=== PATIENT | male | born 1940 | race Caucasian/White ===

== ENCOUNTER 2017-08-18 09:30 | Observation (INO) | payer OTHER ==
--- NOTE | 2017-08-17 15:39 | GHP ---
[f rep st] PREOP HISTORY AND PHYSICAL DATE OF ADMISSION: 08/18/2017 PROBLEM: Severe right knee OA. HISTORY OF PRESENT ILLNESS: The patient is a 77-year-old male who will be undergoing a right total knee arthroplasty with Dr. Rangel at the [facility] on August 18, 2017. The patient has had progressive debilitating pain of the right knee over the past several years. His activities are limited. His knee is painful when going up and down stairs. He can walk about a mile with pain. He also notes occasional swelling. No previous surgery of the right knee. He has had 1 previous cortisone injection in the past as well as physical therapy exercises, which have stopped working. Because of his progressive pain, advanced arthritis, and recalcitrant response to conservative therapies, the patient has elected to proceed with a right total knee arthroplasty. PAST MEDICAL HISTORY: Pertinent for arthritis, coronary artery disease, aortic valve disease with aortic valve replacement in 2014, as well as BPH. No history of MRSA, hepatitis, DVT, PE, or metal allergies. CURRENT MEDICATIONS: Atorvastatin 80 mg, finasteride 5 mg, lisinopril 20 mg, ranitidine 150 mg, tamsulosin 0.4 mg, VESIcare 5 mg, baby aspirin 81 mg. MEDICATION ALLERGIES: No known drug allergies. SOCIAL HISTORY: The patient is . He lives part-time in [place], [place] and part-time in [place], [place]. He is a former smoker. He is retired. His activities include walking. FAMILY HISTORY: Pertinent for coronary artery disease and arthritis. PHYSICAL EXAMINATION: VITALS: Height 5 feet 10 inches, weight 170 pounds, BMI 24.4. GENERAL: He is a healthy-appearing 77-year-old male. HEENT: Head is normocephalic, atraumatic. Eyes are PERRLA. Conjunctivae and sclerae are clear. Mouth he has good oral hygiene without any loose teeth. LUNGS: Clear. HEART: Regular rate and rhythm. Soft systolic murmur heard best at the right upper sternal border without gallops or rubs. ABDOMEN: Deferred. EXTREMITIES : Pertinent findings are limited to the patient's right knee. He has full extension and about 110 degrees of flexion. Mild valgus alignment. Mild effusion. Large superficial varicosities in both legs. Mild pseudolaxity noted of his LCL. The knee is otherwise stable to exam. He has mild to moderate crepitus with active knee extension. DIAGNOSTIC IMAGING: Recent x-rays taken of the patient's knee shows severe bone -on-bone arthritis of the lateral compartment. He also has mild to moderate medial compartment space narrowing and [id number] findings of the patellofemoral compartment. IMPRESSION: On admission 1. Severe right knee osteoarthritis. 2. Coronary artery disease with bypass surgery approximately 25 years ago. 3. Aortic valve disease with aortic valve replacement (bovine in 2014). 4. Treated benign prostatic hypertrophy. 5. Treated hypercholesterolemia. PLAN: The plan will be for the patient to undergo a right total knee arthroplasty with Dr. Rangel at the [facility]. The surgery has been described to the patient including the risks, benefits, and expectations. He understands the importance of postoperative physical therapy. He understands the risk of blood clot, PE, DE, and . All his questions are answered here in the office today. Dr. Rangel was also able to see the patient and answer his questions as well. Copy requested to: Marquez Mcdonald MD [facility] [place], [place] /[id number]/MODL MTDD
[~2017-08-18 09:30] MED LIST: POVIDONE-IODINE 20 ML in SODIUM CL IRRIG SOLUTION 500 ML IRR ONE; ROPIVACAINE 0.2% 80 MG, EPINEPHrine 0.2 MG, KETOROLAC TROMETHAMINE 30 MG in SYRINGE 0 ML IU ONE; TRANEXAMIC ACID 820 MG in NS 100 ML IV ONE
[2017-08-18] MEDS ORDERED: GABAPENTIN 300 MG CAP PO ONE (10:03)
[2017-08-18] MEDS ORDERED: ACETAMINOPHEN 325 MG TAB PO ONE (10:03)
[2017-08-18] MEDS ORDERED: ceFAZolin 2 GM/SWFI 2 GM/20 ML SYR IVP ONE (10:03)
[2017-08-18] MEDS ORDERED: DEXAMETHASONE 4 MG/ML VIAL IVP ONE (10:03)
[2017-08-18] MEDS ORDERED: FAMOTIDINE 20 MG TAB PO ONE (10:03)
[2017-08-18] MEDS ORDERED: LR 1,000 ML IV ONE (10:04)
[2017-08-18] MEDS ORDERED: LIDOCAINE 1% 2 ML INJ ID PRN (10:04)
[2017-08-18] MEDS ORDERED: VANCOMYCIN 1 GM VIAL ONE (10:05)
[2017-08-18] MEDS ORDERED: ceFAZolin 1 GM/5 ML SYR ONE (10:06)
--- NOTE | 2017-08-18 11:30 | PDANEPAE ---
ANE History of Present Illness knee osteoarthritis ANE Past Medical History - Cardiovascular History Hx Hypertension: Yes Hx Arrhythmias: No Hx Chest Pain: No Hx Coronary Artery / Peripheral Vascular Disease: Yes Hx CHF / Valvular Disease: Yes Hx Palpitations: No Cardiovascular History Comment: htn. hyperlipidemia. cad. hx of cabg x3v. hx of aortic valve replacement 2016. seen at [facility] - Pulmonary History Hx COPD: No Hx Asthma/Reactive Airway Disease: No Hx Recent Upper Respiratory Infection: No Hx Oxygen in Use at Home: No Hx Sleep Apnea: Yes Sleep Apnea Screening Result - Last Documented: Positive Pulmonary History Comment: zaid triggers - Neurologic History Hx Cerebrovascular Accident: No Hx Seizures: No Hx Dementia: No - Endocrine History Hx Diabetes: No Hypothyroid: No Hyperthyroid: No Obesity: no - Renal History Hx Renal Disorders: Yes Renal History Comment: bph - Liver History Hx Hepatic Disorders: No - Neurological & Psychiatric Hx Hx Neurological and Psychiatric Disorders: No - Cancer History Hx Cancer: No - Congenital Disorder History Hx Congenital Disorders: No - GI History GERD: no Hx Gastrointestinal Disorders: No - Other Health History Other Health History: hasn't been wearing his bilateral hearing aides - Chronic Pain History Chronic Pain: Yes (right knee) - Surgical History Prior Surgeries: cataracts. colonoscopy. aortic valve replaced 2016. 25 years ago cabg x3v ANE Review of Systems Review of Systems: - Exercise capacity METS (RN): 4 METS ANE Patient History - Allergies Allergies/Adverse Reactions: No Known Allergies Allergy (Verified 08/13/17 10:21) - Home Medications Home Medications: Aspirin [Aspirin 81mg (*)] 81 mg PO HS 08/13/17 [Last Taken 1 Week Ago ~08/11/17 ] Atorvastatin Calcium [Lipitor 80 mg] 80 mg PO HS 08/13/17 [Last Taken 1 Day Ago ~08/17/17] Finasteride [Proscar 5 MG (*)] 5 mg PO DAILY 08/13/17 [Last Taken 1 Day Ago ~] Herbals/Supplements -Info Only 1 ea PO DAILY 08/13/17 [Last Taken 1 Week Ago ~] Lisinopril [Zestril 20 mg (*)] 20 mg PO HS 08/13/17 [Last Taken 1 Day Ago ~08/17] Solifenacin Succinate [Vesicare 5 MG (*)] 5 mg PO HS 08/13/17 [Last Taken 1 Day Ago ~08/17/17] Tamsulosin HCl [Flomax 0.4 MG (*)] 0.8 mg PO HS 08/13/17 [Last Taken 1 Day Ago ~ 08/17/17] - NPO status NPO Since - Liquids (Date): 08/17/17 NPO Since - Liquids (Time): 07:00 NPO Since - Solids (Date): 08/17/17 NPO Since - Solids (Time): 21:00 - Smoking Hx Smoking Status: Former smoker - Family Anes Hx Family Hx Anesthesia Complications: mother had some delirium as well ANE Labs/Vital Signs - Vital Signs Blood Pressure: 160/91 Heart Rate: 63 Respiratory Rate: 18 O2 Sat (%): 94 Height: 175.26 cm Weight: 81.647 kg ANE Physical Exam - Airway Neck exam: FROM Mallampati Score: Class 2 Mouth exam: normal dental/mouth exam - Pulmonary Pulmonary: no respiratory distress, no rales or rhonchi, clear to auscultation - Cardiovascular Cardiovascular: regular rate and rhythym, systolic murmur - ASA Status ASA Status: II ANE Anesthesia Plan Anesthesia Plan: MAC, spinal Regional Anesthesia: continuous NB, adductor canal FNB Total IV Anesthesia: No
--- NOTE | 2017-08-18 11:33 | PDHPUP ---
History & Physical Update H&P update statement: This history and physical update is based on an assessment of the patient which was completed after admission or registration (within 24 hours), but prior to the surgery/procedure. H&P update: H&P reviewed & patient examined, no change in patient's condition since H&P completed
[2017-08-18] MEDS ORDERED: MIDAZOLAM 2 MG/2 ML VIAL ONE (12:05)
[2017-08-18] MEDS ORDERED: MIDAZOLAM 2 MG/2 ML VIAL IVP ONE (12:15)
[2017-08-18] MEDS ORDERED: PROPOFOL/EMULSION 500 MG/50 ML BOTTLE IV ONE ×2 (12:19→13:37)
[2017-08-18] MEDS ORDERED: DEXAMETHASONE 4 MG/ML VIAL ONE (12:57)
[2017-08-18] MEDS ORDERED: fentaNYL 100 MCG/2 ML INJ ONE (13:02)
[2017-08-18] MEDS ORDERED: ROPIVACAINE HCL 150 MG/30 ML INJ ONE (14:19)
--- NOTE | 2017-08-18 14:24 | POSTOPPROG ---
Post Op Note Date of Operation: 08/18/17 Surgeon: Marlon Rangel Anthropology Professor: Nicola Anesthesiologist: Tiago Anesthesia: IV Sedation, Spinal Post-op Diagnosis: right knee arthritis Procedure: right TKA Inf/Abcess present in the surg proc area at time of surgery?: No EBL: 50-100 (adductor canal block in PACU)
[2017-08-18] MEDS ORDERED: METOCLOPRAMIDE 10 MG/2 ML VIAL IVP PRN (14:32)
[2017-08-18] MEDS ORDERED: traMADol 50 MG TAB PO PRN (14:32)
[2017-08-18] MEDS ORDERED: LACTULOSE 20 GM/30 ML UDCUP PO PRN (14:32)
[2017-08-18] MEDS ORDERED: KETOROLAC 30 MG/1 ML SDV IVP PRN (14:32)
[2017-08-18] MEDS ORDERED: BISACODYL 10 MG SUPP PR PRN (14:32)
[2017-08-18] MEDS ORDERED: oxyCODONE IR 5 MG TAB PO PRN (14:32)
[2017-08-18] MEDS ORDERED: TEMAZEPAM 15 MG CAP PO PRN (14:32)
[2017-08-18] MEDS ORDERED: PROMETHAZINE HCL 25 MG SUPPR PR PRN (14:32)
[2017-08-18] MEDS ORDERED: ONDANSETRON 4 MG/2 ML VIAL IVP PRN (14:32)
[2017-08-18] MEDS ORDERED: PROMETHAZINE HCL 25 MG/ML INJ IVP PRN (14:32)
[2017-08-18] MEDS ORDERED: MAGNESIUM HYDROXIDE 30 ML UDCUP PO PRN (14:32)
[2017-08-18] MEDS ORDERED: DIPHENOXYLATE/ATROPINE LOMOTIL 1 TAB PO PRN (14:32)
[2017-08-18] MEDS ORDERED: ONDANSETRON DISINTEGRATING 4 MG TAB PO PRN (14:32)
[2017-08-18] MEDS ORDERED: CYCLOBENZAPRINE 10 MG TAB PO PRN (14:32)
[2017-08-18] MEDS ORDERED: NS 500 ML IV PRN (14:32)
[2017-08-18] MEDS ORDERED: diphenhydrAMINE 25 MG CAP PO PRN (14:32)
[2017-08-18] MEDS ORDERED: POLYETHYLENE GLYCOL 3350 17 GM PKT PO PRN (14:32)
[2017-08-18] MEDS ORDERED: LR 1,000 ML IV SCH (15:00)
--- NOTE | 2017-08-18 15:19 | GOP ---
[f rep st] OPERATIVE REPORT DATE OF OPERATION: 08/18/2017 SURGEON: Marlon Rangel MD CONTROLS TECHNICIAN: Tahir Schroeder PAC and Alan Hansen CFA ANESTHESIA: Combination of Marcaine, spinal, IV sedation, and adductor canal block ANESTHESIOLOGIST: Gunner Ordoñez DO PREOPERATIVE DIAGNOSIS: Right knee severe degenerative arthritis with valgus deformity. POSTOPERATIVE DIAGNOSIS: Right knee severe degenerative arthritis with valgus deformity. PROCEDURE PERFORMED: Right total knee arthroplasty, cemented, Ambrosio and Nephew Journey II, posterior stabilized. FINDINGS: ESTIMATED BLOOD LOSS: Following deflation of tourniquet was about 100 mL. DESCRIPTION OF PROCEDURE: The patient was given 2 g of IV Ancef preoperatively within 60 minutes of surgery. He also received IV tranexamic acid at a dose of 10 mg/kg. He was placed on the operating room table and given spinal anesthesia with Marcaine by Dr. Ordoñez. He was then placed supine a nd given IV sedation. A Sena catheter was not used. He wore a NANCY stocking and SCD on the nonopera tive leg. His right lower extremity was prepped with ChloraPrep from the upper thigh tourniquet to t he tips of the toes. It was draped free using sterile sheets, stockinette, and Ioban plastic adhesiv e drape. The lower leg was wrapped with compressive Coban. The leg was exsanguinated with elevation and a 6-inch compressive wrap, and the pneumatic tourniquet was inflated to 250 mmHg. The World Health Organization time-out was performed to verify the correct patient identity and the c orrect surgical side and site. The Curlew time-out was also performed. The MapMyIndiaayo leg holding device was sterilely attached to the operating room table and used throughout the procedure to help position the knee. A straight midline incision made centered on the patella. Subcutaneous tissues were sharply divided, and hemostasis was obtained using electrocautery. A media l subcutaneous flap was developed, and the capsule and synovium were opened in a medial parapatellar fashion. Extensive degenerative changes were present, particularly in the lateral compartment. He h ad a significant erosion on the lateral tibial plateau. The medial capsule and periosteum were eleva nancy off the rim and medial tibial plateau all the way around to the posteromedial corner. The medial collateral ligament was released just enough to balance the medial side of the knee. In order to improve exposure, his patella was prepared first. The original thickness of the patella was measured. Peripheral osteophytes were removed. I cut a flat surface on the back of the patella. He was sized for a 41 mm resurfacing component. I removed enough bone from the patella such that t he remaining bone plus the thickness of the patellar component recreated the original thickness of th e patella. The composite thickness was 24 mm. The intramedullary guide system was used to set up the distal femoral cut. The distal femur was cut in 5 degrees of valgus. Because of a slight preoperative flexion contracture, I made a +2 mm cut on the distal femur. The sizing jig was used to determine proper femoral sizing. He was a true size 6 without a shift. The 5 in 1 cutting block was applied and the anterior, posterior, condylar cuts and chamfer cuts were made. The final jig was used to remove the central portion of the distal femur to accommodate the posterior stabilized femoral component. I was careful to determine proper rotation by referencing off Whitesides line and other bony landmarks. Each cut was checked for accuracy befor e and after it was made. The femur was sized for a size 6 posterior stabilized component. Next, the tibia was prepared. The proximal tibial cut was made using the extramedullary alignment gu ella system. The cut was made in a few degrees of posterior slope. I was careful to achieve proper v arus, valgus alignment and proper rotation. The posterior compartment was cleared of meniscal remnan ts. Osteophytes were removed from the back of the femoral condyles. I checked the flexion and exten valentin gaps, and they were equal and balanced. The tibia was sized for a size 6 component. With the t rial components in place, I selected a 10 mm polyethylene posterior stabilized tibial insert. The kn ee came to full extension and flexed to 125 degrees. There was no overstuffing in flexion. His elton ateral ligaments were stable and balanced in 90 degrees of flexion and full extension. The trial pat ellar button was applied, and patellar tracking was checked. Tracking was excellent without any digi vidal pressure. Then. 40 mL of the joint anesthetic cocktail were injected into the posterior capsule, the periarticu lar structures, the quadriceps muscle and tendon areas, and the subcutaneous tissues along the skin e dges. A second dose of IV tranexamic acid was given at a dose of 10 mg/kg. The surfaces were prepared for cementing. They were carefully cleaned with the pulsating lavage irri gation and thoroughly dried. The CarboJet device was used to blow dry the cancellous surfaces. A do uble batch of high viscosity methylmethacrylate cement with 2 g of powdered vancomycin added was mixe d. While it was still in a doughy state, all [address] components were cemented in place. Excess cement was removed before it hardened. The 10 mm trial tibial insert was re-tried and was the proper thickness. The actual component was in serted and locked into place. The knee was thoroughly irrigated 1 final time with a dilute Betadine solution. The tourniquet was deflated and the total tourniquet time was 53 minutes. The vastus medialis portion of the extensor mechanism was repaired with several interrupted figure-of -eight #2 FiberWire sutures. The capsule and synovium were closed first with multiple interrupted fi [id number] 0 PDS sutures, followed by a running #2 barbed Ethicon Stratafix PDO suture. The subcu taneous tissues were closed with a running 0 barbed Ethicon Stratafix Monoderm suture. The skin was closed with a running 3-0 barbed Ethicon Stratafix Monoderm subcuticular suture. The skin was sealed with half-inch Steri-Strips. The wound was covered with Xeroform gauze and a large Mepilex water pro of surgical dressing and a 6 inch wrap. A long-leg NANCY stocking and SCD were applied, followed by th e cooling device. The patient wore a stocking and SCD on the opposite leg during the procedure. I used a size 6 cemented Ambrosio and Nephew Oxinium posterior stabilized femoral component, size 6 ceme nted tibial base plate, a 10 mm posterior stabilized tibial insert and a 41 mm cemented round all-haile yethylene resurfacing patellar component. COUNT: The sponge and needle count were correct on 2 occasions. DISPOSITION: He was awakened from anesthesia, transferred to [facility] and taken to PACU i n satisfactory condition. There were no recognized intraoperative complications. In the PACU, for a dditional postoperative pain control, Dr. Ordoñez performed an adductor canal block with and indw elling catheter. Chi Schroeder and Alan Hansen acted as surgical assistants. Their assistance was a medical necess ity for safe completion of the procedure. /[id number]/MODL
--- NOTE | 2017-08-18 16:17 | POSTANESTH ---
Post Anesthetic Evaluation Cardiovascular Status: Normal, Stable Respiratory Status: Normal, Stable Level of Consciousness/Mental Status: Can Participate in Eval Pain Control: Adequate, Prn Tx Ordered Nausea/Vomiting Control: Adequate, Prn Tx Ordered Complications Possibly Related to Anesthesia: None Noted
[2017-08-18] MEDS: ACETAMINOPHEN 325 MG TAB PO SCH ×2 (18:27→23:15)
[2017-08-18] MEDS: TRANEXAMIC ACID 650 MG TAB PO SCH (20:30)
[2017-08-18] MEDS: FAMOTIDINE 20 MG TAB PO SCH (20:30)
[2017-08-18] MEDS: SENNOSIDES/DOCUSATE SODIUM TAB PO SCH (20:30)
[2017-08-18] MEDS: ceFAZolin 2 GM/DEXTROSE 100 ML IV SCH (20:31)
[2017-08-18] MEDS: ASPIRIN 325 MG TAB PO SCH (20:44)
[2017-08-18] MEDS: FINASTERIDE 5 MG TAB PO SCH (20:44)
[2017-08-18] MEDS ORDERED: LISINOPRIL 20 MG TAB PO SCH (21:00)
[2017-08-18] MEDS ORDERED: SOLIFENACIN SUCCINATE 5 MG TAB PO SCH (21:00)
[2017-08-18] MEDS ORDERED: TAMSULOSIN HCL 0.4 MG CAP PO SCH (21:00)
[2017-08-18] MEDS ORDERED: ATORVASTATIN CALCIUM 40 MG TAB PO SCH (21:00)
[2017-08-19 03:50] VITALS: RESP 16
[2017-08-19] MEDS: ceFAZolin 2 GM/DEXTROSE 100 ML IV SCH (04:23)
[2017-08-19] MEDS: TRANEXAMIC ACID 650 MG TAB PO SCH ×2 (05:16→13:08)
[2017-08-19] MEDS: ACETAMINOPHEN 325 MG TAB PO SCH ×2 (05:16→13:05)
[2017-08-19] MEDS: FINASTERIDE 5 MG TAB PO SCH (08:23)
[2017-08-19] MEDS: SENNOSIDES/DOCUSATE SODIUM TAB PO SCH (08:24)
[2017-08-19] MEDS: ASPIRIN 325 MG TAB PO SCH (08:25)
[2017-08-19] MEDS: FAMOTIDINE 20 MG TAB PO SCH (08:26)
[2017-08-19] MEDS ORDERED: FERROUS SULFATE 140 MG TAB.ER PO SCH (09:00)
--- NOTE | 2017-08-19 09:00 | SOAPPROG ---
SOAP Progress Note Assessment/Plan: Assessment: POD #1, s/p R TKA Awake, alert, afebrile. Little to no pain. VSS. H/H ok. Dressing clean and dry. Post op films look good. OOB yesterday. Plan: PT/OT today. Probable discharge later today pending PT clearance. 08/19/17 08:58 Objective: Vital Signs Temp Pulse Resp BP Pulse Ox 36.8 C 52 L 16 125/67 H 97 08/19/17 07:20 08/19/17 07:20 08/19/17 07:20 08/19/17 07:20 08/19/17 07:20 Laboratory Results 08/19/17 04:58 08/18/17 08/19/17 08/20/17 05:59 05:59 05:59 Intake Total 0 Output Total 310 Balance 1740 ICD10 Worksheet Patient Problems: Problems Problem Status Onset Osteoarthritis of right knee Acute
--- NOTE | 2017-08-19 09:23 | ASMTCASEMG ---
Living Arrangements What is your living Answers: With Spouse arrangement? Who do you live with? Type Of Residence What kind of residence do Answers: House you live in? Discharge Plan Comments Coordination Status Comments Notes: Pt is a 77 y/o man admitted for a total knee arthroplasty. Pt lives in [place], [place]. Pt and plan on driving back home after the surgery. is planning on getting a hotel, if needed, for the next night after surgery. Pt is scheduled to go to outpatient PT 2 weeks post-op. Provided loan closet list for a walker. CM available for changes. Plan: Independent Date Signed: 08/19/2017 09:22 AM Electronically Signed By:HONEY Lopez
[2017-08-19 11:20] VITALS: BP 123/67; PULSE 59; TEMP 97.9; O2SAT 96
[2017-08-19] MEDS ORDERED: BUPIVACAINE 0.5% 30 ML SDV ONE (12:10)
--- NOTE | 2017-08-19 12:31 | SOAPPROG ---
SOAP Progress Note Assessment/Plan: Assessment: POD #1 s/p TKA performed under SAB. Adductor canal nerve block with catheter placement performed for extended post op pain control. Patient doing very well. Plan: Rebolus nerve catheter with 20ml bupivicaine and remove catheter prior to patient discharge today. 08/19/17 12:28 Subjective: Pt. denies pain until approximately 9am today. Rates pain at 2-3/10 presently. Objective: Vital Signs Temp Pulse Resp BP Pulse Ox 36.6 C 59 L 16 123/67 H 96 08/19/17 11:15 08/19/17 11:15 08/19/17 11:15 08/19/17 11:15 08/19/17 11:15 Laboratory Results 08/19/17 04:58 08/18/17 08/19/17 08/20/17 05:59 05:59 05:59 Intake Total 2050 Output Total 310 Balance 1740 - Time Spent With Patient Time Spent With Patient: 20 minutes - Pending Discharge Pending Discharge Within 24 Hours: Yes Pending Discharge Date: 08/19/17 Pending Discharge Time: 13:00 Physical Exam - Physical Exam General Appearance: WD/WN, alert, no apparent distress ICD10 Worksheet Patient Problems: Problems Problem Status Onset Osteoarthritis of right knee Acute
--- NOTE | 2017-08-19 16:47 | ASDISCHSUM ---
Discharge Information Plan Status:Home with No Needs Medically Cleared to Leave: Discharge Date:08/19/2017 01:17 PM CM D/C Disposition:Home, Routine, Self-Care ADT D/C Disposition:Home, Routine, Self-Care Projected Discharge Date:08/19/2017 01:17 PM Transportation at D/C: Discharge Delay Reason: Follow-Up Date:08/19/2017 01:17 PM Discharge Slot: Final Diagnosis: Placement Information Patient Contact Information Contact Name:GILBERT Relationship: Address:[address] Work Phone: [employer] Alternate Phone: [facility]/Zip Code:[place] [address] Email: Financial Information Financial Class: Primary Plan Desc:MEDICARE OUTPATIENT Primary Plan Number:[id number] Secondary Plan Desc:[employer]MA[employer] Secondary Plan Number:[id number] Assessment Information [facility] Initial CM Assessment Living Arrangements What is your living Answers: With Spouse arrangement? Who do you live with? Type Of Residence What kind of residence do Answers: House you live in? Discharge Plan Comments Coordination Status Comments Notes: Pt is a 77 y/o man admitted for a total knee arthroplasty. Pt lives in [place], [place]. Pt and plan on driving back home after the surgery. is planning on getting a hotel, if needed, for the next night after surgery. Pt is scheduled to go to outpatient PT 2 weeks post-op. Provided loan closet list for a walker. CM available for changes. Plan: Independent Date Signed: 08/19/2017 09:22 AM Electronically Signed By:HONEY Lopez Intervention Information
== END 2017-08-19 13:17 | disposition home or self-care (01) ==
LOC: F3N 09:30
PROVIDERS: ADMIT Orthopaedic Surgery; ATTEND Orthopaedic Surgery
PROC: 0SRC069 Replacement of Right Knee Joint with Oxidized Zirconium on Polyethylene Synthetic Substitute, Cemented, Open Approach (ICD-10-PCS; principal; 2017-08-18 11:45)
DX: M17.11 Unilateral primary osteoarthritis, right knee (principal); M25.561 Pain in right knee; I25.10 Atherosclerotic heart disease of native coronary artery without angina pectoris; I35.9 Nonrheumatic aortic valve disorder, unspecified; E78.5 Hyperlipidemia, unspecified; N40.0 Benign prostatic hyperplasia without lower urinary tract symptoms; Z87.891 Personal history of nicotine dependence; Z82.49 Family history of ischemic heart disease and other diseases of the circulatory system; Z95.1 Presence of aortocoronary bypass graft; Z95.3 Presence of xenogenic heart valve
CPT/HCPCS: 27447; 73560; 77073; 88311; 97116; 97161; 97165; C1713; C1776; G8978; G8979; G8980; G8987; G8988; G8989; J0171; J0690; J1100; J1885; J2250; J2704; J2795; J3010; J3370